=== PATIENT | male | born 1945 | race Caucasian/White ===

== ENCOUNTER 2019-12-15 09:32 | Emergency (ER) | payer OTHER ==
[~2019-12-15] VITALS: Ht 160 cm; Wt 60.1 kg
[~2019-12-15 09:32] MED LIST: ASPI81TA45 PO; ATOR-2 PO; HYDR-3245 PO; METO25TA35 PO; NICO-487 TD; NITR0.4T28 SL; QUET25TA7 PO; RISP0.5T24 PO; SENN-193 PO; TICA90TA PO
--- NOTE | 2019-12-15 09:53 | NUR ---
pt to ed for constipation. pt recently fell and injured right shoulder. pt believes constipation is related to pain medications. lbm at least 2 weeks ago. pt connected to monitors. vss. Dr. Almanza to bs for assessment. per edmd, due to recent FL, pt is not a candidate for sedation. orders received. plan for enema.
--- NOTE | 2019-12-15 10:00 | NUR ---
Report received from Quiana WEN, pt care transferred to Lynnette WEN and Aleshia WEN at this time.
--- NOTE | 2019-12-15 10:06 | NUR ---
Pt back from radiology via gurney, eyes closed, even and unlabored respirations, placed on monitor, call light within reach, NAD, WCTM.
--- NOTE | 2019-12-15 10:49 | NUR ---
HHH enema per MD order administered, pt sitting on bedside commode with RN standing by. Pt NAD, even and unlabored respirations, WCTM.
[2019-12-15] MEDS ORDERED: METHYLNALTREXONE 12 MG/0.6 ML SYR SQ ONE ×2 (11:30→11:34)
--- NOTE | 2019-12-15 11:39 | NUR ---
pt resting in gurney, NAD, call light within reach, denies additional needs, even and unlabored respirations, medicated per MAR. see MAR for details, WCTM.
[2019-12-15 11:43] LABS: ANION GAP 6 mmol/L (5-15); CALCIUM 8.5 mg/dL (8.5-10.1); CHLORIDE 105 mmol/L (98-107); CREATININE 1.07 mg/dL (0.7-1.3)
[2019-12-15 11:49] LABS: BASOPHILS # (AUTO) 0.02 x10^3/uL (0-0.1); BASOPHILS % (AUTO) 0 % (0-1); EOSINOPHILS # (AUTO) 0.39 x10^3/uL (0-0.4); EOSINOPHILS % (AUTO) 4 % (1-7); LYMPHOCYTES # (AUTO) 1.63 x10^3/uL (1-3.4); LYMPHOCYTES % (AUTO) 16 % (22-44); MD NO; MEAN CORPUSCULAR HEMOGLOBIN 33.2 pg (27.5-34.5); MEAN CORPUSCULAR HGB CONC 33.4 g/dL (33.2-36.2); MEAN CORPUSCULAR VOLUME 99.3 fL (81-97); MEAN PLATELET VOLUME 7.5 fL (7.4-10.4); MONOCYTES # (AUTO) 0.93 x10^3/uL (0.2-0.8); MONOCYTES % (AUTO) 9 % (2-9); NEUTROPHILS # (AUTO) 7.33 x10^3/uL (1.8-6.8); NEUTROPHILS % (AUTO) 71 % (42-75); PLATELET COUNT 261 x10^3/uL (130-400); RED BLOOD COUNT 3.43 x10^6/uL (4.38-5.82); RED CELL DISTRIBUTION WIDTH 13.7 % (9.4-14.8)
[2019-12-15] MEDS ORDERED: MAGNESIUM CITRATE 300ML ORAL SOL PO ONE (12:00)
--- NOTE | 2019-12-15 12:11 | NUR ---
pt resting in gurney, NAD, call light within reach, denies additional needs, even and unlabored respirations, medicated per MAR. see MAR for details, WCTM.
[2019-12-15] MEDS ORDERED: MAGNESIUM CITRATE 300ML ORAL SOL ONE (12:16)
--- NOTE | 2019-12-15 13:16 | NUR ---
Pt given fleets enema per Archie HELLER request, pt placed on bedpan and told to avoid straining, pt NAD, call light within reach, denies additional needs, on monitor, RN at bedside, NIKKY.
[2019-12-15 13:26] VITALS: BP 129/48
--- NOTE | 2019-12-15 14:13 | NUR ---
Pt ambulated independently w/ his personal walker to ED discharge desk, pt calling a cab for transport home.
== END 2019-12-15 14:15 | disposition home or self-care (01) ==
LOC: ED 10:15
DX: K56.41 Fecal impaction (principal); I10 Essential (primary) hypertension; E78.5 Hyperlipidemia, unspecified; I25.2 Old myocardial infarction; I25.10 Atherosclerotic heart disease of native coronary artery without angina pectoris; Z95.1 Presence of aortocoronary bypass graft
CPT/HCPCS: 36415; 74021; 80048; 82040; 85025; 96372; 99285

== ENCOUNTER 2019-12-17 05:44 | Emergency (ER) | payer OTHER ==
[~2019-12-17] VITALS: Ht 165.1 cm; Wt 58.0 kg
[2019-12-17] MEDS ORDERED: SODIUM CHLORIDE FLUSH 10ML SYR IVF ONE (06:00)
--- NOTE | 2019-12-17 06:25 | NUR ---
C/O SOB STATES "I FEEL IM NOT GETTING ANY AIR" 97% RA, PLACED 1L NC, PT NOW AT 98% 1L, PT REPORTS HE FEELS BETTER WITH THE OXYGEN.
[2019-12-17 06:40] LABS: BASOPHILS # (AUTO) 0.05 x10^3/uL (0-0.1); BASOPHILS % (AUTO) 1 % (0-1); EOSINOPHILS # (AUTO) 0.46 x10^3/uL (0-0.4); EOSINOPHILS % (AUTO) 5 % (1-7); LYMPHOCYTES # (AUTO) 1.52 x10^3/uL (1-3.4); LYMPHOCYTES % (AUTO) 16 % (22-44); MD NO; MEAN CORPUSCULAR HEMOGLOBIN 33.2 pg (27.5-34.5); MEAN CORPUSCULAR HGB CONC 33.5 g/dL (33.2-36.2); MEAN CORPUSCULAR VOLUME 99.1 fL (81-97); MEAN PLATELET VOLUME 7.4 fL (7.4-10.4); MONOCYTES # (AUTO) 0.92 x10^3/uL (0.2-0.8); MONOCYTES % (AUTO) 10 % (2-9); NEUTROPHILS # (AUTO) 6.49 x10^3/uL (1.8-6.8); NEUTROPHILS % (AUTO) 69 % (42-75); PLATELET COUNT 245 x10^3/uL (130-400); RED BLOOD COUNT 3.32 x10^6/uL (4.38-5.82); RED CELL DISTRIBUTION WIDTH 13.9 % (9.4-14.8)
[2019-12-17 06:47] VITALS: BP 94/56
--- NOTE | 2019-12-17 06:49 | NUR ---
PT CONTINUES TO REPORT HE FEELS HE CAN'T BREATHE, O2 SAT 100% ON 2L NC.
--- NOTE | 2019-12-17 06:51 | NUR ---
NO ACUTE DISTRESS NOTED, RESPIRATIONS ARE EVEN AND UNLABORED.
[2019-12-17 06:53] LABS: ALANINE AMINOTRANSFERASE 13 U/L (12-78); ALBUMIN 2.8 g/dL (3.4-5.0); ANION GAP 5 mmol/L (5-15); CALCIUM 8.7 mg/dL (8.5-10.1); CHLORIDE 104 mmol/L (98-107); CREATININE 1.01 mg/dL (0.7-1.3)
[2019-12-17 06:57] LABS: ALKALINE PHOSPHATASE 79 U/L (45-117); BILIRUBIN,TOTAL 1.3 mg/dL (0.2-1.0); TOTAL PROTEIN 6.6 g/dL (6.4-8.2); TROPONIN I < 0.015 ng/mL (0.000-0.045)
--- NOTE | 2019-12-17 07:11 | NUR ---
REPORT RECEIVED FROM BEHZAD DENNIS. ASSUMED CARE
== END 2019-12-17 08:15 | disposition home or self-care (01) ==
LOC: ED 05:58
DX: R06.00 Dyspnea, unspecified (principal); I10 Essential (primary) hypertension
CPT/HCPCS: 36415; 71045; 80053; 83880; 84484; 85025; 93005; 99283

== ENCOUNTER 2019-12-18 16:12 | Inpatient (IN) | payer OTHER ==
[~2019-12-18] VITALS: Ht 165.1 cm; Wt 59.6 kg
--- NOTE | 2019-12-18 16:32 | NUR ---
pt to ed for episodic sob x4 times today. per ems, episodes of sob corrolate to decrease in hr to low 40s. hr remains sinus at all times. pt connected to all monitors. vss. hr fluctuates from low 40s-mid 60s. no needs expressed at this time. Dr. Almanza to bs for assessment. orders received. xr complete. quality lab technician to bs at this time for draw. awaiting results.
[2019-12-18 16:56] LABS: BASOPHILS # (AUTO) 0.06 x10^3/uL (0-0.1); BASOPHILS % (AUTO) 1 % (0-1); EOSINOPHILS % (AUTO) 5 % (1-7); LYMPHOCYTES # (AUTO) 2.14 x10^3/uL (1-3.4); LYMPHOCYTES % (AUTO) 25 % (22-44); MD NO; MEAN CORPUSCULAR HEMOGLOBIN 32.7 pg (27.5-34.5); MEAN CORPUSCULAR HGB CONC 33.3 g/dL (33.2-36.2); MEAN CORPUSCULAR VOLUME 98.2 fL (81-97); MEAN PLATELET VOLUME 7.5 fL (7.4-10.4); MONOCYTES # (AUTO) 0.69 x10^3/uL (0.2-0.8); MONOCYTES % (AUTO) 8 % (2-9); NEUTROPHILS # (AUTO) 5.25 x10^3/uL (1.8-6.8); NEUTROPHILS % (AUTO) 62 % (42-75); PLATELET COUNT 280 x10^3/uL (130-400); RED BLOOD COUNT 3.41 x10^6/uL (4.38-5.82); RED CELL DISTRIBUTION WIDTH 13.7 % (9.4-14.8)
[2019-12-18 17:00] LABS: ALANINE AMINOTRANSFERASE 12 U/L (12-78); ALBUMIN 2.9 g/dL (3.4-5.0); ANION GAP 5 mmol/L (5-15); CALCIUM 8.8 mg/dL (8.5-10.1); CHLORIDE 105 mmol/L (98-107)
[2019-12-18 17:04] LABS: ALKALINE PHOSPHATASE 80 U/L (45-117); BILIRUBIN,TOTAL 0.6 mg/dL (0.2-1.0); TOTAL PROTEIN 6.7 g/dL (6.4-8.2); TROPONIN I < 0.015 ng/mL (0.000-0.045)
--- NOTE | 2019-12-18 17:38 | NUR ---
assist rn: PT TO IMAGING AT THIS TIME.
[2019-12-18] MEDS ORDERED: OMNIPAQUE 350 MG/ML, 100ML BOTTLE ONE (18:01)
--- NOTE | 2019-12-18 18:39 | NUR ---
CM PERSAUD, ROOMMATE, OKAY TO UPDATE, .
--- NOTE | 2019-12-18 18:42 | NUR ---
pt resting in room. vss. second ekg obtained d/t bradycardia. edmd aware. plan to admit. no needs expressed. call light within reach.
--- NOTE | 2019-12-18 18:55 | NUR ---
report to BEHZAD Sal.
--- NOTE | 2019-12-18 19:09 | NUR ---
TP RN: PT TO BE ADMITTED, HAS NON-CONTRACTED [employer] INSURANCE. PT REFUSED BY MECHANICAL TECHNICAL SERVICE SPECIALIST, CONCHIS AT [facility].
--- NOTE | 2019-12-18 19:14 | NUR ---
Pt alert and resting on gurney. Pt provided with urinal. Call light within reach.
[2019-12-18] MEDS ORDERED: ONDANSETRON 2MG/ML, 2ML IVPush PRN (19:30)
[2019-12-18] MEDS ORDERED: ACETAMINOPHEN 325 MG TABLET PO PRN (19:30)
--- NOTE | 2019-12-18 19:45 | NUR ---
Pt helped to reposition on gurney. Call light within reach.
--- NOTE | 2019-12-18 19:46 | NUR ---
Report given to BEHZAD Salazar
[2019-12-18 20:30] VITALS: BP 109/53
[2019-12-18] MEDS ORDERED: TICAGRELOR 90 MG TABLET PO SCH (21:00)
[2019-12-18] MEDS: ATORVASTATIN 80 MG TABLET PO SCH (22:29)
[2019-12-18] MEDS: QUETIAPINE 25MG TABLET PO SCH (22:30)
[2019-12-18] MEDS: RISPERIDONE 0.5 MG TABLET PO SCH (22:30)
[2019-12-19 03:20] VITALS: BP 105/47
[2019-12-19] MEDS ORDERED: LORazepam 2 MG/ML, 1ML IVPush PRN (04:00)
[2019-12-19] MEDS: HYDROcodone/APAP 5/325 TABLET PO PRN ×3 (04:15→20:44)
[2019-12-19 04:45] LABS: BASOPHILS # (AUTO) 0.12 x10^3/uL (0-0.1); BASOPHILS % (AUTO) 1 % (0-1); EOSINOPHILS % (AUTO) 7 % (1-7); LYMPHOCYTES # (AUTO) 1.93 x10^3/uL (1-3.4); LYMPHOCYTES % (AUTO) 23 % (22-44); MD NO; MEAN CORPUSCULAR HEMOGLOBIN 33.1 pg (27.5-34.5); MEAN CORPUSCULAR HGB CONC 33.5 g/dL (33.2-36.2); MEAN CORPUSCULAR VOLUME 98.9 fL (81-97); MEAN PLATELET VOLUME 7.1 fL (7.4-10.4); MONOCYTES # (AUTO) 0.97 x10^3/uL (0.2-0.8); MONOCYTES % (AUTO) 11 % (2-9); NEUTROPHILS # (AUTO) 4.95 x10^3/uL (1.8-6.8); NEUTROPHILS % (AUTO) 58 % (42-75); PLATELET COUNT 271 x10^3/uL (130-400); RED BLOOD COUNT 3.32 x10^6/uL (4.38-5.82); RED CELL DISTRIBUTION WIDTH 13.6 % (9.4-14.8)
[2019-12-19 04:53] LABS: ANION GAP 6 mmol/L (5-15); CALCIUM 8.7 mg/dL (8.5-10.1); CHLORIDE 108 mmol/L (98-107)
[2019-12-19 05:05] LABS: CREATININE 0.82 mg/dL (0.7-1.3)
[2019-12-19] MEDS ORDERED: METOPROLOL TARTRATE 25 MG TAB PO SCH (06:00)
[2019-12-19] MEDS: ASPIRIN 81 MG TABLET EC PO SCH (06:27)
[2019-12-19 07:20] VITALS: BP 152/66
[2019-12-19] MEDS: QUETIAPINE 25MG TABLET PO SCH ×2 (09:03→20:48)
[2019-12-19] MEDS: CLOPIDOGREL 75 MG TABLET PO SCH (09:03)
[2019-12-19 13:30] VITALS: BP 143/66
[2019-12-19 20:06] VITALS: BP 156/52
[2019-12-19] MEDS: RISPERIDONE 0.5 MG TABLET PO SCH (20:45)
[2019-12-19] MEDS: ATORVASTATIN 80 MG TABLET PO SCH (20:45)
[2019-12-20 01:59] VITALS: BP 147/63
[2019-12-20] MEDS: HYDROcodone/APAP 5/325 TABLET PO PRN (02:06)
[2019-12-20] MEDS: ASPIRIN 81 MG TABLET EC PO SCH (06:16)
[2019-12-20 07:49] VITALS: BP 138/69
[2019-12-20] MEDS: QUETIAPINE 25MG TABLET PO SCH (08:56)
[2019-12-20] MEDS: CLOPIDOGREL 75 MG TABLET PO SCH (08:56)
[2019-12-20] MEDS ORDERED: CLOP75TA PO (09:40)
== END 2019-12-20 13:01 | disposition home or self-care (01) | DRG 204 ==
LOC: ED 16:49 → EDIP 18:54 → 5SO 20:02
PROVIDERS: ADMIT Internal Medicine; ATTEND Internal Medicine
DX: R06.02 Shortness of breath (principal); R00.1 Bradycardia, unspecified; D53.9 Nutritional anemia, unspecified; E78.5 Hyperlipidemia, unspecified; F17.210 Nicotine dependence, cigarettes, uncomplicated; F32.9 Major depressive disorder, single episode, unspecified; I71.2 Thoracic aortic aneurysm, without rupture; T45.525A Adverse effect of antithrombotic drugs, initial encounter; F41.9 Anxiety disorder, unspecified; I10 Essential (primary) hypertension; I25.10 Atherosclerotic heart disease of native coronary artery without angina pectoris; I25.2 Old myocardial infarction; Z79.82 Long term (current) use of aspirin; Z95.1 Presence of aortocoronary bypass graft; Z95.5 Presence of coronary angioplasty implant and graft
CPT/HCPCS: 36415; 71045; 71275; 80048; 80053; 83880; 84443; 84484; 85025; 93005; 99285; G0378; Q9967; J2060

== ENCOUNTER 2019-12-20 15:06 | Observation (INO) | payer OTHER ==
[~2019-12-20] VITALS: Ht 165.1 cm; Wt 59.3 kg
[~2019-12-20 15:06] MED LIST changes: +CLOP75TA PO
[2019-12-20] MEDS ORDERED: SODIUM CHLORIDE FLUSH 10ML SYR IVF ONE (15:30)
--- NOTE | 2019-12-20 15:30 | NUR ---
to Radiology for xrays/Head CT
--- NOTE | 2019-12-20 15:35 | NUR ---
BIB BY [facility] FROM HOME AFTER GLF D/T SUDDEN ROOM SPINNING DIZZINESS. -LOC, DID NOT HIT HEAD, NO BLOOD THINNERS NO CHEST PAIN, SOB RECENTLY STARTED ON UNKNOWN PAIN MEDICINE FOR RECENTLY FRACTURED RIGHT HUMERUS MAISHA RECENTLY HOSPITALIZED FOR MS FSBS 132, VSS (BBB ON 12 LEAD ECG) SMALL SKIN TEAR TO RIGHT HAND NOTED
[2019-12-20 15:46] LABS: BASOPHILS # (AUTO) 0.12 x10^3/uL (0-0.1); BASOPHILS % (AUTO) 1 % (0-1); EOSINOPHILS # (AUTO) 0.13 x10^3/uL (0-0.4); EOSINOPHILS % (AUTO) 2 % (1-7); LYMPHOCYTES # (AUTO) 1.28 x10^3/uL (1-3.4); LYMPHOCYTES % (AUTO) 15 % (22-44); MD NO; MEAN CORPUSCULAR HEMOGLOBIN 32.3 pg (27.5-34.5); MEAN CORPUSCULAR HGB CONC 32.4 g/dL (33.2-36.2); MEAN CORPUSCULAR VOLUME 99.7 fL (81-97); MEAN PLATELET VOLUME 6.9 fL (7.4-10.4); MONOCYTES # (AUTO) 0.53 x10^3/uL (0.2-0.8); MONOCYTES % (AUTO) 6 % (2-9); NEUTROPHILS # (AUTO) 6.52 x10^3/uL (1.8-6.8); NEUTROPHILS % (AUTO) 76 % (42-75); PLATELET COUNT 320 x10^3/uL (130-400); RED BLOOD COUNT 3.68 x10^6/uL (4.38-5.82); RED CELL DISTRIBUTION WIDTH 13.8 % (9.4-14.8)
[2019-12-20 15:54] LABS: ANION GAP 5 mmol/L (5-15); CHLORIDE 105 mmol/L (98-107)
[2019-12-20 15:57] LABS: TROPONIN I < 0.015 ng/mL (0.000-0.045)
--- NOTE | 2019-12-20 16:40 | NUR ---
WITH REASSESSMENT PATIENT RESTING COMFORTABLY (FAST ASLEEP) VSS ON LANDSCAPING AND GROUNDSKEEPING LABORER LEFT HAND SKIN LAC-IRRIGATED/DRESSED WITH BULKY DRESSING
[2019-12-20] MEDS ORDERED: SODIUM CHLORIDE FLUSH 10ML SYR IVF PRN (17:30)
[2019-12-20] MEDS ORDERED: TRAZODONE 50MG TABLET PO PRN (18:00)
[2019-12-20] MEDS ORDERED: LABETALOL 5MG/ML, 20ML IVPush PRN (18:00)
[2019-12-20] MEDS ORDERED: POLYETHYLENE GLYCOL 17 GM PACKET PO PRN (18:00)
[2019-12-20] MEDS ORDERED: ONDANSETRON ODT 4 MG PO PRN (18:00)
[2019-12-20] MEDS ORDERED: ACETAMINOPHEN 325 MG TABLET PO PRN (18:00)
[2019-12-20] MEDS ORDERED: DOCUSATE 100 MG CAPSULE PO PRN (18:00)
[2019-12-20] MEDS ORDERED: hydrALAzine 20 MG/ML, 1ML IVPush PRN (18:00)
[2019-12-20 18:31] VITALS: BP 138/70
[2019-12-20] MEDS ORDERED: ENOXAPARIN 40 MG/0.4 ML SQ SCH (19:00)
[2019-12-20 19:18] LABS: PREALBUMIN 18.1 mg/dL (20.0-40.0)
[2019-12-20] MEDS: HYDROcodone/APAP 10/325 MG TABLET PO PRN (19:32)
[2019-12-20] MEDS: RISPERIDONE 0.5 MG TABLET PO SCH (20:05)
[2019-12-20] MEDS: ATORVASTATIN 80 MG TABLET PO SCH (20:05)
[2019-12-20] MEDS: QUETIAPINE 25MG TABLET PO SCH (20:06)
[2019-12-20 20:18] LABS: AMPHETAMINE SCREEN, URINE Negative (Negative); BARBITURATE SCREEN, URINE Negative (Negative); BENZODIAZEPINE SCREEN, URINE Negative (Negative); CANNABINOID SCREEN, URINE Positive (Negative); COCAINE SCREEN, URINE Negative (Negative); METHADONE SCREEN, URINE Negative (Negative); OPIATE SCREEN, URINE Positive (Negative)
[2019-12-20 21:09] LABS: MICROSCOPIC NOT IND
[2019-12-20 21:10] LABS: CULTURE INDICATED? NO
[2019-12-21 01:18] VITALS: BP 136/92
[2019-12-21] MEDS: HYDROcodone/APAP 10/325 MG TABLET PO PRN ×3 (01:54→17:15)
[2019-12-21 04:57] LABS: BASOPHILS # (AUTO) 0.05 x10^3/uL (0-0.1); BASOPHILS % (AUTO) 1 % (0-1); EOSINOPHILS # (AUTO) 0.47 x10^3/uL (0-0.4); EOSINOPHILS % (AUTO) 5 % (1-7); LYMPHOCYTES # (AUTO) 2.28 x10^3/uL (1-3.4); LYMPHOCYTES % (AUTO) 25 % (22-44); MD NO; MEAN CORPUSCULAR HEMOGLOBIN 33.2 pg (27.5-34.5); MEAN CORPUSCULAR HGB CONC 33.4 g/dL (33.2-36.2); MEAN CORPUSCULAR VOLUME 99.3 fL (81-97); MEAN PLATELET VOLUME 7.3 fL (7.4-10.4); MONOCYTES # (AUTO) 0.98 x10^3/uL (0.2-0.8); MONOCYTES % (AUTO) 11 % (2-9); NEUTROPHILS # (AUTO) 5.44 x10^3/uL (1.8-6.8); NEUTROPHILS % (AUTO) 59 % (42-75); PLATELET COUNT 309 x10^3/uL (130-400); RED BLOOD COUNT 3.66 x10^6/uL (4.38-5.82); RED CELL DISTRIBUTION WIDTH 13.9 % (9.4-14.8)
[2019-12-21 05:05] LABS: ANION GAP 7 mmol/L (5-15); CALCIUM 8.9 mg/dL (8.5-10.1); CHLORIDE 108 mmol/L (98-107)
[2019-12-21 05:10] LABS: ALANINE AMINOTRANSFERASE 14 U/L (12-78); ALKALINE PHOSPHATASE 104 U/L (45-117); CREATININE 0.95 mg/dL (0.7-1.3); TOTAL PROTEIN 6.9 g/dL (6.4-8.2)
[2019-12-21] MEDS: ASPIRIN 81 MG TABLET EC PO SCH (05:14)
[2019-12-21 06:40] VITALS: BP 151/61
[2019-12-21] MEDS: CLOPIDOGREL 75 MG TABLET PO SCH (07:51)
[2019-12-21] MEDS: QUETIAPINE 25MG TABLET PO SCH ×2 (07:51→20:06)
[2019-12-21 12:56] VITALS: BP 165/73
[2019-12-21 18:39] VITALS: BP 148/61
[2019-12-21] MEDS: ATORVASTATIN 80 MG TABLET PO SCH (20:05)
[2019-12-21] MEDS: RISPERIDONE 0.5 MG TABLET PO SCH (20:06)
[2019-12-22 00:55] VITALS: BP 152/74
[2019-12-22] MEDS: ASPIRIN 81 MG TABLET EC PO SCH (05:16)
[2019-12-22 07:33] VITALS: BP 149/65
[2019-12-22] MEDS: QUETIAPINE 25MG TABLET PO SCH (07:42)
[2019-12-22] MEDS: CLOPIDOGREL 75 MG TABLET PO SCH (07:42)
[2019-12-22] MEDS: HYDROcodone/APAP 10/325 MG TABLET PO PRN (12:35)
[2019-12-22 14:12] VITALS: BP 145/65
== END 2019-12-22 17:26 ==
LOC: ED 15:25 → INTOOBSV 17:08 → EDIP 17:08 → 4WST 18:14
PROVIDERS: ADMIT Internal Medicine; ATTEND Internal Medicine
DX: S42.201A Unspecified fracture of upper end of right humerus, initial encounter for closed fracture (principal); G92 Toxic encephalopathy; E44.1 Mild protein-calorie malnutrition; R55 Syncope and collapse; F32.9 Major depressive disorder, single episode, unspecified; F17.200 Nicotine dependence, unspecified, uncomplicated; F12.90 Cannabis use, unspecified, uncomplicated; F41.9 Anxiety disorder, unspecified; I10 Essential (primary) hypertension; R29.6 Repeated falls; I25.10 Atherosclerotic heart disease of native coronary artery without angina pectoris; I25.2 Old myocardial infarction; Z79.82 Long term (current) use of aspirin; Z79.899 Other long term (current) drug therapy; Z91.81 History of falling; Z95.1 Presence of aortocoronary bypass graft; Y92.098 Other place in other non-institutional residence as the place of occurrence of the external cause; W18.39XA Other fall on same level, initial encounter; Y93.89 Activity, other specified
CPT/HCPCS: 36415; 70450; 70551; 71045; 73060; 80048; 80053; 80307; 81003; 82040; 83735; 83880; 84100; 84134; 84484; 85025; 86592; 87806; 93005; 97116; 97162; 97166; 97530; 99285; G0378; G0475

== ENCOUNTER 2021-01-01 11:34 | Emergency (ER) | payer OTHER ==
[~2021-01-01] VITALS: Ht 162.6 cm; Wt 55.0 kg
[~2021-01-01 11:34] MED LIST changes: +ASCO500T9 PO; +CHOL500045 PO; -HYDR-3245 PO; +HYDR1TAB53 PO; -NICO-487 TD; +NICO-587 TD
--- NOTE | 2021-01-01 11:43 | NUR ---
PATIENT BIB EMS WITH CHIEF C/O BALANCE ISSUES. PER EMS PATIENT STATES HE "FEELS OFF." PATIENT USES WALKER AT HOME, ROOMATE CALLED BECAUSE HE NOTICED PATIENT'S BALANCE WAS OFF. PATIENT DENIES DIZZINESS, NO CHEST PAIN. VSS EN ROUTE PER EMS. NO INTERVENTIONS EN ROUTE. PATIENT DENIES ABBOTT, NADN, CONNECTED TO MONITORS, SIDE RAILS UP X2, CALL LIGHT WITHIN REACH.
[2021-01-01] MEDS ORDERED: SODIUM CHLORIDE 0.9% 1,000ML IVBOLUS ONE (12:00)
[2021-01-01] MEDS ORDERED: SODIUM CHLORIDE FLUSH 10ML SYR IVF ONE (12:00)
--- NOTE | 2021-01-01 12:21 | NUR ---
PATIENT EDUCATED ABOUT NEED FOR URINE SAMPLE, URINAL AT BEDSIDE. 20 GAUGE IV STARTED LEFT FOREARM, NS BOLUS HUNG, NADN, VSS, SIDE RAILS UP X2, CALL LIGHT WITHIN REACH, NO FURTHER NEEDS AT THIS TIME.
[2021-01-01 12:23] LABS: BASOPHILS % (AUTO) 1 % (0-1); EOSINOPHILS % (AUTO) 2 % (1-7); LYMPHOCYTES % (AUTO) 10 % (22-44); MEAN CORPUSCULAR HEMOGLOBIN 28.1 pg (27.5-34.5); MEAN CORPUSCULAR HGB CONC 32.7 g/dL (33.2-36.2); MEAN PLATELET VOLUME 6.7 fL (7.4-10.4); MONOCYTES % (AUTO) 11 % (2-9); NEUTROPHILS % (AUTO) 76 % (42-75); PLATELET COUNT 533 x10^3/uL (130-400); RED BLOOD COUNT 3.12 x10^6/uL (4.38-5.82); RED CELL DISTRIBUTION WIDTH 16.3 % (9.4-14.8)
[2021-01-01 12:34] LABS: ALANINE AMINOTRANSFERASE 10 U/L (12-78); ALBUMIN 1.9 g/dL (3.4-5.0); ANION GAP 5 mmol/L (5-15); CALCIUM 8.5 mg/dL (8.5-10.1); CHLORIDE 103 mmol/L (98-107); CREATININE 0.82 mg/dL (0.7-1.3)
[2021-01-01 12:39] LABS: ALKALINE PHOSPHATASE 114 U/L (45-117); BILIRUBIN,TOTAL 0.3 mg/dL (0.2-1.0); TOTAL PROTEIN 7.1 g/dL (6.4-8.2); TROPONIN I < 0.015 ng/mL (0.000-0.045)
[2021-01-01 12:42] LABS: CREATINE KINASE, TOTAL < 7 U/L (39-308)
[2021-01-01 13:05] LABS: MD SCAN
[2021-01-01 13:06] LABS: MICROSCOPIC NOT IND
--- NOTE | 2021-01-01 13:12 | NUR ---
URINE COLLECTED AND SENT TO LAB.
--- NOTE | 2021-01-01 13:34 | NUR ---
PATIENT REQUESTING BED ADJUSTMENT, BED ADJUSTED, NADN, VSS, CALL LIGHT WITHIN REACH, NO FURTHER NEEDS AT THIS TIME. PATIENT UP FOR RECHECK.
[2021-01-01] MEDS ORDERED: POTASSIUM CHLORIDE 20 MEQ PACKET PO ONE (14:00)
[2021-01-01] MEDS ORDERED: POTASSIUM CHLORIDE 20 MEQ PACKET ONE (14:05)
--- NOTE | 2021-01-01 14:13 | NUR ---
PATIENT AMBULATED DOWN [place] WITH STEADY GAIT, LAVERN, PATIENT MEDICATED PER [employer]. Addendum: 01/01/21 at 1421 by JEANINE ELSI NOTIFIED THAT PATIENT IS ABLE TO AMBULATE DOWN [place].
[2021-01-01 15:24] VITALS: BP 136/49
--- NOTE | 2021-01-01 15:25 | NUR ---
IV removed with tip intact. Patient given discharge instructions and prescription and they have confirmed that they understand the instructions. Patient stable and ambulatory with steady gait from ED.
== END 2021-01-01 15:24 | disposition home or self-care (01) ==
LOC: ED 14:21
DX: E87.6 Hypokalemia (principal); R07.9 Chest pain, unspecified; I45.10 Unspecified right bundle-branch block; I10 Essential (primary) hypertension; I25.2 Old myocardial infarction; I25.10 Atherosclerotic heart disease of native coronary artery without angina pectoris
CPT/HCPCS: 36415; 71045; 80053; 81003; 82550; 83605; 83735; 84443; 84484; 85025; 93005; 96360; 99284; J7030; 99283

== ENCOUNTER 2021-02-16 17:40 | Inpatient (IN) | payer OTHER ==
[~2021-02-16] VITALS: Ht 165.1 cm; Wt 55.0 kg
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
--- NOTE | 2021-02-16 17:52 | NUR ---
PROVIDER AT BEDSIDE TO DO EVALUATION ON PT. AWAITING NEW ORDERS.
[2021-02-16] MEDS ORDERED: SODIUM CHLORIDE FLUSH 10ML SYR IVF ONE (18:00)
[2021-02-16] MEDS ORDERED: ASPIRIN 81 MG TABLET CHEW PO ONE (18:00)
[2021-02-16 18:25] LABS: BASOPHILS % (AUTO) 1 % (0-1); EOSINOPHILS % (AUTO) 2 % (1-7); LYMPHOCYTES % (AUTO) 11 % (22-44); MEAN CORPUSCULAR HEMOGLOBIN 25.7 pg (27.5-34.5); MEAN CORPUSCULAR HGB CONC 32.6 g/dL (33.2-36.2); MEAN PLATELET VOLUME 6.4 fL (7.4-10.4); MONOCYTES % (AUTO) 11 % (2-9); NEUTROPHILS % (AUTO) 75 % (42-75); PLATELET COUNT 658 x10^3/uL (130-400); RED CELL DISTRIBUTION WIDTH 17.8 % (9.4-14.8)
[2021-02-16 18:34] LABS: ALBUMIN 1.4 g/dL (3.4-5.0); ANION GAP 4 mmol/L (5-15); CALCIUM 8.3 mg/dL (8.5-10.1); CHLORIDE 103 mmol/L (98-107)
--- NOTE | 2021-02-16 18:45 | NUR ---
PROVIDER AT PT BEDSIDE TO DO EVALUATION AFTER CRITICAL VALUES CAME BACK LOW. AWAITING ORDERS
[2021-02-16 18:46] LABS: ALANINE AMINOTRANSFERASE 7 U/L (12-78); ALKALINE PHOSPHATASE 105 U/L (45-117); BILIRUBIN,TOTAL 0.3 mg/dL (0.2-1.0); CREATININE 0.66 mg/dL (0.7-1.3); TOTAL PROTEIN 6.7 g/dL (6.4-8.2); TROPONIN I < 0.015 ng/mL (0.000-0.045)
[2021-02-16] MEDS ORDERED: PANTOPRAZOLE 80 MG in SODIUM CHLORIDE 0.9% 100 ML IV SCH ×2 (19:00→21:00)
[2021-02-16] MEDS ORDERED: PANTOPRAZOLE 80 MG in SODIUM CHLORIDE 0.9% 50 ML IVPB ONE (19:00)
--- NOTE | 2021-02-16 19:05 | NUR ---
AT BEDSIDE WITH HEMOCULT OBTAINED AND POSITIVE. DISCUSSING BLOOD TRANSFUSION AND ADMISSION TO HOSPITAL. REPORT TO LAVERNE WEN
[2021-02-16 19:19] LABS: INTERNATIONAL NORMALIZED RATIO 1.25 (0.93-1.1); PROTHROMBIN TIME 13.3 Seconds (9.6-11.5)
--- NOTE | 2021-02-16 19:19 | NUR ---
THROUGHPUT: PT TRANSFER DECLINED BY [facility] (SKIP) FOR [place] [facility]; [facility] FORM FAXED & PLACED IN FOLDER WITH FAX CONFIRMATION; EMAIL ALSO SENT TO ADMITTING DEPT.
--- NOTE | 2021-02-16 19:35 | NUR ---
PT. RESTING ON GURNEY WITH EYES CLOSED. EVEN, NON-LABORED RESPIRATIONS VISIBLE. PT. APPEARS MORE COMFORTABLE. ALL SAFETY MEASURES MAINTAINED.
--- NOTE | 2021-02-16 19:49 | NUR ---
STILL AWAITING MED FROM PHARMACY.
[2021-02-16] MEDS ORDERED: SODIUM CHLORIDE 0.9% 1,000 ML IV ONE (20:00)
[2021-02-16] MEDS ORDERED: SODIUM CHLORIDE FLUSH 10ML SYR IVF PRN (20:00)
[2021-02-16 20:09] VITALS: BP 128/59
[2021-02-16 20:27] VITALS: BP 146/55
--- NOTE | 2021-02-16 20:28 | NUR ---
BLOOD INFUSING; PT. FREE FROM S/S OF REACTIONL. REPORT WAS GIVEN TO BEHZAD WILLETT. FLOOR READY FOR PT. TRANSPORT.
[2021-02-16 20:39] VITALS: BP 122/54
--- NOTE | 2021-02-16 20:40 | NUR ---
[facility] TO BS TO EVAL PT. FOR ADMISSION.
--- NOTE | 2021-02-16 21:01 | NUR ---
PT. BEING TRANSPORTED TO FLOOR AT THIS TIME. BLOOD CONTINUES TO INFUSE. PT. REMAINS FREE FROM S/S OF REACTION.
[2021-02-16 21:18] VITALS: BP 126/58
[2021-02-16] MEDS ORDERED: BISACODYL 10 MG SUPP PR PRN (22:00)
[2021-02-16] MEDS ORDERED: LIDODERM 5% PATCH TD PRN (22:00)
[2021-02-16] MEDS ORDERED: POTASSIUM CHLORIDE 20 MEQ in SODIUM CHLORIDE 0.9% 250 ML IV ONE (22:30)
[2021-02-16] MEDS: MOVIPREP POWDER 1 PREP KIT PO SCH (23:23)
[2021-02-16 23:33] VITALS: BP 122/49
[2021-02-17] VITALS (8 sets, daily range): BP systolic 103–133; BP diastolic 48–63
[2021-02-17] MEDS ORDERED: NICOTINE 21 MG/24 HR PATCH.TD24 TD ONE
[2021-02-17 00:40] LABS: TROPONIN I < 0.015 ng/mL (0.000-0.045)
[2021-02-17 01:16] LABS: MICROSCOPIC INDICATED
[2021-02-17] MEDS: MOVIPREP POWDER 1 PREP KIT PO SCH (03:43)
[2021-02-17 07:53] LABS: BASOPHILS % (AUTO) 1 % (0-1); EOSINOPHILS % (AUTO) 2 % (1-7); LYMPHOCYTES % (AUTO) 8 % (22-44); MEAN CORPUSCULAR HEMOGLOBIN 26.2 pg (27.5-34.5); MEAN CORPUSCULAR HGB CONC 32.3 g/dL (33.2-36.2); MEAN PLATELET VOLUME 6.5 fL (7.4-10.4); MONOCYTES % (AUTO) 11 % (2-9); NEUTROPHILS % (AUTO) 79 % (42-75); PLATELET COUNT 680 x10^3/uL (130-400); RED BLOOD COUNT 3.07 x10^6/uL (4.38-5.82); RED CELL DISTRIBUTION WIDTH 17.4 % (9.4-14.8)
[2021-02-17 08:06] LABS: ANION GAP 5 mmol/L (5-15); CALCIUM 8.2 mg/dL (8.5-10.1); CHLORIDE 109 mmol/L (98-107); CHOLESTEROL, TOTAL 120 mg/dL (140-239); CREATININE 0.61 mg/dL (0.7-1.3)
[2021-02-17 08:16] LABS: CHOL/HDL RATIO 4.8; HDL CHOL % 21 % (26-37); HDL CHOLESTEROL (DIRECT) 25 mg/dL (40-60); LDL CHOLESTEROL,CALCULATED 81 mg/dL (54-169); LDL/HDL RATIO 3.2 (0.5-3.0); TRIGLYCERIDES 70 mg/dL (50-200); TROPONIN I < 0.015 ng/mL (0.000-0.045); VLDL CHOLESTEROL 14 mg/dL (0-25)
[2021-02-17] MEDS ORDERED: CHLORHEXIDINE 15 ML UDC PO ONE (08:30)
[2021-02-17] MEDS ORDERED: PROPOFOL 50 ML ONE (09:00)
[2021-02-17] MEDS ORDERED: OMNIPAQUE 350 MG/ML, 100ML BOTTLE ONE (15:10)
[2021-02-17] MEDS ORDERED: VANCOMYCIN PER PHARMACY MC PRN (17:30)
[2021-02-17] MEDS ORDERED: GOLYTELY 4,000ML ORAL.SOL PO ONE (18:00)
[2021-02-17] MEDS ORDERED: PHARMACOKINETIC MONITORING MC PRN (18:00)
[2021-02-17 18:24] LABS: HCT (SEDRATE) 23.9 % (39.2-51.8)
[2021-02-17] MEDS: CEFTRIAXONE 2 GM in DEXTROSE 5% 50 ML IVPB SCH (18:32)
[2021-02-17] MEDS ORDERED: VANCOMYCIN 1,400 MG in SODIUM CHLORIDE 0.9% 250 ML IV ONE (20:00)
[2021-02-17] MEDS: POTASSIUM CHLORIDE 20 MEQ in LACTATED RINGERS 1,000 ML IV SCH (20:25)
[2021-02-18] VITALS (7 sets, daily range): BP systolic 116–144; BP diastolic 49–62
--- NOTE | 2021-02-18 02:59 | NUR ---
CLAUDETTE FLYNN - Fall Risk Medications present and NOT receiving anticoagulants.
[2021-02-18 05:17] LABS: MEAN CORPUSCULAR HEMOGLOBIN 25.9 pg (27.5-34.5); MEAN CORPUSCULAR HGB CONC 31.7 g/dL (33.2-36.2); MEAN PLATELET VOLUME 6.7 fL (7.4-10.4); PLATELET COUNT 746 x10^3/uL (130-400); RED BLOOD COUNT 3.09 x10^6/uL (4.38-5.82); RED CELL DISTRIBUTION WIDTH 17.7 % (9.4-14.8)
[2021-02-18 05:21] LABS: ALBUMIN 1.4 g/dL (3.4-5.0); ANION GAP 8 mmol/L (5-15); CALCIUM 8.5 mg/dL (8.5-10.1); CHLORIDE 109 mmol/L (98-107)
[2021-02-18 05:25] LABS: ALKALINE PHOSPHATASE 100 U/L (45-117); BILIRUBIN,TOTAL 0.4 mg/dL (0.2-1.0); CREATININE 0.52 mg/dL (0.7-1.3); TOTAL PROTEIN 6.4 g/dL (6.4-8.2)
[2021-02-18 05:30] LABS: ALANINE AMINOTRANSFERASE < 6 U/L (12-78)
[2021-02-18 05:52] LABS: BAND#(MANUAL) 0.64 x10^3/uL; BANDS%(MANUAL) 3 % (0-7); EOS#(MANUAL) 0.43 x10^3/uL (0.0-0.4); EOS% (MANUAL) 2 % (1-7); LYMPH#(MANUAL) 1.92 x10^3/uL (1-3.4); LYMPHS% (MANUAL) 9 % (22-44); MONOS% (MANUAL) 8 % (2-9); SEG#(MANUAL) 16.61 x10^3/uL (1.8-6.8); SEGS% (MANUAL) 78 % (42-75)
[2021-02-18 05:53] LABS: ANISOCYTOSIS 1+; HYPOCHROMIA 1+
[2021-02-18 05:54] LABS: <PLATELET ESTIMATE> INCREASED; SMALL PLATELETS 1+
[2021-02-18] MEDS: POTASSIUM CHLORIDE 20 MEQ in LACTATED RINGERS 1,000 ML IV SCH (06:40)
[2021-02-18] MEDS ORDERED: VANCOMYCIN 1,000 MG in SODIUM CHLORIDE 0.9% 100 ML IV SCH (08:00)
[2021-02-18] MEDS ORDERED: FLUMAZENIL 0.1 MG/1 ML, 5ML ONE (08:35)
[2021-02-18] MEDS ORDERED: MIDAZOLAM 1 MG/ML, 5ML ONE (08:35)
[2021-02-18] MEDS ORDERED: NALOXONE 1 MG/ML, 2ML ONE (08:35)
[2021-02-18] MEDS ORDERED: FENTANYL PF 100 MCG/2ML ONE (08:35)
[2021-02-18] MEDS ORDERED: LIDOCAINE-MPF 1%, 5ML ONE (08:42)
[2021-02-18] MEDS ORDERED: CHLORHEXIDINE 15 ML UDC ONE (09:35)
[2021-02-18] MEDS ORDERED: PROPOFOL 50 ML ONE (10:23)
[2021-02-18] MEDS ORDERED: ACETAMINOPHEN 325 MG TABLET PO PRN (10:30)
[2021-02-18] MEDS ORDERED: hydrALAzine 20 MG/ML, 1ML IV PRN (10:30)
[2021-02-18] MEDS ORDERED: DIAZEPAM 5 MG/ML, 2ML IVPush PRN (10:30)
[2021-02-18] MEDS ORDERED: LABETALOL 5MG/ML, 20ML IV PRN (10:30)
[2021-02-18] MEDS ORDERED: OXYcodone 5 MG/5 ML ORAL.SOL UDC PO PRN (10:30)
[2021-02-18] MEDS ORDERED: FENTANYL PF 100 MCG/2ML IV PRN (10:30)
[2021-02-18] MEDS ORDERED: ONDANSETRON 2MG/ML, 2ML IVPush PRN (10:30)
[2021-02-18] MEDS: CEFTRIAXONE 2 GM in DEXTROSE 5% 50 ML IVPB SCH (17:46)
[2021-02-18] MEDS: VANCOMYCIN 1,000 MG in SODIUM CHLORIDE 0.9% 100 ML IV SCH (23:56)
[2021-02-19] MEDS: POTASSIUM CHLORIDE 20 MEQ in LACTATED RINGERS 1,000 ML IV SCH (01:23)
[2021-02-19 01:49] VITALS: BP 114/60
[2021-02-19 06:14] VITALS: BP 133/56
[2021-02-19 10:04] LABS: MEAN CORPUSCULAR HEMOGLOBIN 25.4 pg (27.5-34.5); MEAN CORPUSCULAR HGB CONC 31.4 g/dL (33.2-36.2); MEAN PLATELET VOLUME 6.4 fL (7.4-10.4); PLATELET COUNT 768 x10^3/uL (130-400); RED BLOOD COUNT 3.57 x10^6/uL (4.38-5.82)
[2021-02-19 10:11] LABS: ALBUMIN 1.4 g/dL (3.4-5.0); ANION GAP 7 mmol/L (5-15); CALCIUM 8.7 mg/dL (8.5-10.1); CHLORIDE 109 mmol/L (98-107)
[2021-02-19 10:14] LABS: ALKALINE PHOSPHATASE 94 U/L (45-117); BILIRUBIN,TOTAL 0.4 mg/dL (0.2-1.0); CREATININE 0.53 mg/dL (0.7-1.3); TOTAL PROTEIN 6.4 g/dL (6.4-8.2)
[2021-02-19 10:16] LABS: ALANINE AMINOTRANSFERASE < 6 U/L (12-78)
[2021-02-19 10:40] LABS: EOS#(MANUAL) 0.65 x10^3/uL (0.0-0.4); EOS% (MANUAL) 3 % (1-7); LYMPH#(MANUAL) 2.38 x10^3/uL (1-3.4); LYMPHS% (MANUAL) 11 % (22-44); MONOS#(MANUAL) 2.16 x10^3/uL (0.3-2.7); MONOS% (MANUAL) 10 % (2-9); SEG#(MANUAL) 16.42 x10^3/uL (1.8-6.8); SEGS% (MANUAL) 76 % (42-75)
[2021-02-19 10:41] LABS: ANISOCYTOSIS 1+; HYPOCHROMIA 1+
[2021-02-19 10:42] LABS: <PLATELET ESTIMATE> INCREASED; SMALL PLATELETS 1+
[2021-02-19] MEDS: VANCOMYCIN 1,000 MG in SODIUM CHLORIDE 0.9% 100 ML IV SCH (12:43)
[2021-02-19 13:22] VITALS: BP 137/72
[2021-02-19] MEDS ORDERED: ACETAMINOPHEN 325 MG TABLET PO PRN (15:30)
[2021-02-19] MEDS ORDERED: ACETAMINOPHEN 325 MG TABLET ONE (15:31)
[2021-02-19] MEDS: CEFTRIAXONE 2 GM in DEXTROSE 5% 50 ML IVPB SCH (17:22)
[2021-02-19] MEDS: POTASSIUM CHLORIDE 20 MEQ TAB.ER.PRT PO SCH (17:22)
[2021-02-19 19:20] VITALS: BP 133/64
[2021-02-19 23:30] VITALS: BP 147/77
[2021-02-20] MEDS: morphine SULFATE 10 MG/ML, 1ML IVPush PRN ×2 (00:09→21:17)
[2021-02-20 00:10] LABS: MICROSCOPIC NOT IND
[2021-02-20 00:43] LABS: TROPONIN I < 0.015 ng/mL (0.000-0.045)
[2021-02-20 01:52] VITALS: BP 142/60
[2021-02-20 05:43] LABS: TROPONIN I < 0.015 ng/mL (0.000-0.045)
[2021-02-20] MEDS ORDERED: VANCOMYCIN 1,000 MG in SODIUM CHLORIDE 0.9% 100 ML IV SCH (06:00)
[2021-02-20 06:46] VITALS: BP 120/45
[2021-02-20 08:04] LABS: ALBUMIN 1.3 g/dL (3.4-5.0); ANION GAP 8 mmol/L (5-15); CALCIUM 8.4 mg/dL (8.5-10.1); CHLORIDE 108 mmol/L (98-107); CREATININE 0.58 mg/dL (0.7-1.3)
[2021-02-20 08:06] LABS: ALKALINE PHOSPHATASE 83 U/L (45-117); BILIRUBIN,TOTAL 0.2 mg/dL (0.2-1.0); TOTAL PROTEIN 5.8 g/dL (6.4-8.2)
[2021-02-20 08:19] LABS: ALANINE AMINOTRANSFERASE < 6 U/L (12-78)
[2021-02-20 08:34] LABS: MEAN CORPUSCULAR HEMOGLOBIN 26.1 pg (27.5-34.5); MEAN CORPUSCULAR HGB CONC 32.3 g/dL (33.2-36.2); PLATELET COUNT 702 x10^3/uL (130-400); RED BLOOD COUNT 3.07 x10^6/uL (4.38-5.82); RED CELL DISTRIBUTION WIDTH 18.5 % (9.4-14.8)
[2021-02-20] MEDS: POTASSIUM CHLORIDE 20 MEQ TAB.ER.PRT PO SCH ×3 (08:58→17:15)
[2021-02-20 09:23] LABS: BAND#(MANUAL) 0.52 x10^3/uL; BANDS%(MANUAL) 3 % (0-7); EOS#(MANUAL) 0.17 x10^3/uL (0.0-0.4); EOS% (MANUAL) 1 % (1-7); LYMPH#(MANUAL) 1.39 x10^3/uL (1-3.4); LYMPHS% (MANUAL) 8 % (22-44); MONOS#(MANUAL) 0.87 x10^3/uL (0.3-2.7); MONOS% (MANUAL) 5 % (2-9); SEG#(MANUAL) 14.44 x10^3/uL (1.8-6.8); SEGS% (MANUAL) 83 % (42-75)
[2021-02-20 09:25] LABS: ANISOCYTOSIS 1+; HYPOCHROMIA 1+
[2021-02-20 09:26] LABS: <PLATELET ESTIMATE> INCREASED; SMALL PLATELETS 1+
[2021-02-20 15:13] VITALS: BP 153/62
[2021-02-20 18:25] VITALS: BP 115/58
[2021-02-21 01:01] VITALS: BP 120/80
[2021-02-21] MEDS ORDERED: MELATONIN 5 MG TABLET PO ONE (02:30)
[2021-02-21] MEDS: morphine SULFATE 10 MG/ML, 1ML IVPush PRN ×2 (03:34→19:34)
[2021-02-21 04:05] VITALS: BP 152/63
[2021-02-21 07:18] VITALS: BP 150/65
[2021-02-21] MEDS: POTASSIUM CHLORIDE 20 MEQ TAB.ER.PRT PO SCH ×3 (08:00→18:14)
[2021-02-21] MEDS ORDERED: POTASSIUM CHLORIDE 20 MEQ TAB.ER.PRT PO ONE (10:30)
[2021-02-21 12:10] VITALS: BP 142/62
[2021-02-21 13:10] VITALS: BP 142/62
[2021-02-21 20:32] VITALS: BP 139/70
[2021-02-22 00:35] VITALS: BP 135/65
[2021-02-22 07:02] VITALS: BP 141/60
[2021-02-22] MEDS: POTASSIUM CHLORIDE 20 MEQ TAB.ER.PRT PO SCH ×2 (07:52→11:40)
[2021-02-22] MEDS ORDERED: OXYC5TAB98 PO (11:07)
[2021-02-22] MEDS ORDERED: BISA10SU4 PR (11:07)
[2021-02-22] MEDS ORDERED: ACET325T26 PO (11:07)
[2021-02-22] MEDS ORDERED: POTA20TA6 PO (11:07)
[2021-02-22 13:48] VITALS: BP 142/66
[2021-02-25 13:10] LABS: ANA SCREEN NEGATIVE (Negative)
== END 2021-02-22 17:20 | DRG 356 ==
LOC: ED 19:00 → EDIP 20:13 → 4EST 21:07
PROVIDERS: ADMIT Family Medicine; ATTEND Internal Medicine
PROC: 30233N1 Transfusion of Nonautologous Red Blood Cells into Peripheral Vein, Percutaneous Approach (ICD-10-PCS; 2021-02-16)
PROC: 0DB98ZX Excision of Duodenum, Via Natural or Artificial Opening Endoscopic, Diagnostic (ICD-10-PCS; 2021-02-17)
PROC: 0WBF3ZX Excision of Abdominal Wall, Percutaneous Approach, Diagnostic (ICD-10-PCS; principal; 2021-02-18 10:15)
PROC: 0DJD8ZZ Inspection of Lower Intestinal Tract, Via Natural or Artificial Opening Endoscopic (ICD-10-PCS; 2021-02-19)
DX: C76.2 Malignant neoplasm of abdomen (principal); E43 Unspecified severe protein-calorie malnutrition; C16.9 Malignant neoplasm of stomach, unspecified; D62 Acute posthemorrhagic anemia; R64 Cachexia; R65.10 Systemic inflammatory response syndrome (SIRS) of non-infectious origin without acute organ dysfunction; D50.9 Iron deficiency anemia, unspecified; D69.6 Thrombocytopenia, unspecified; E78.5 Hyperlipidemia, unspecified; E87.6 Hypokalemia; F10.10 Alcohol abuse, uncomplicated; F17.210 Nicotine dependence, cigarettes, uncomplicated; F32.9 Major depressive disorder, single episode, unspecified; F41.9 Anxiety disorder, unspecified; I10 Essential (primary) hypertension; I25.10 Atherosclerotic heart disease of native coronary artery without angina pectoris; I25.2 Old myocardial infarction; I35.1 Nonrheumatic aortic (valve) insufficiency; I70.0 Atherosclerosis of aorta; K22.2 Esophageal obstruction; K44.9 Diaphragmatic hernia without obstruction or gangrene; Z53.9 Procedure and treatment not carried out, unspecified reason; Z63.8 Other specified problems related to primary support group; Z82.49 Family history of ischemic heart disease and other diseases of the circulatory system; Z95.1 Presence of aortocoronary bypass graft; Z95.5 Presence of coronary angioplasty implant and graft; Y90.9 Presence of alcohol in blood, level not specified; Z68.20 Body mass index [BMI] 20.0-20.9, adult; Z20.822 Contact with and (suspected) exposure to COVID-19
CPT/HCPCS: 36415; 36430; 49180; 71045; 71260; 74177; 77012; 80048; 80053; 80061; 80202; 80320; 81001; 81003; 82728; 83036; 83540; 83550; 83605; 83735; 83880; 84100; 84145; 84443; 84484; 85014; 85018; 85025; 85610; 85651; 85730; 86038; 86140; 86430; 86611; 86638; 86850; 86900; 86923; 87040; 87449; 87635; 88305; 88341; 88342; 93005; 93306; 93312; 93325; 93970; 96374; 99156; 99157; G0378; J0696; J2250; J2704; J3010; J3370; J3480; Q9967; C9113; G0480; J2270; J2310; J7030; J7050; J7120; P9016

== ENCOUNTER 2021-02-23 09:44 | Emergency (ER) | payer OTHER ==
[~2021-02-23] VITALS: Ht 165.1 cm; Wt 61.0 kg
[~2021-02-23 09:44] MED LIST changes: +ACET325T26 PO; +BISA10SU4 PR; +OXYC5TAB98 PO; +POTA20TA6 PO
--- NOTE | 2021-02-23 09:55 | NUR ---
BIB [facility] FROM [facility]. ABOUT 30 MIN AGO, PT C/O CP AND DIZZINESS. CP RESOLVED PRIOR TO [facility] ARRIVAL. PT DC FROM [facility] YESTERDAY AFTER NSTEMI. PT CONNECTED TO MONITORING. EKG COMPLETE.
--- NOTE | 2021-02-23 10:11 | NUR ---
PIV PLACED, LABS DRAWN AND COLLECTED BY IT HELP DESK ASSOCIATE. PT CONNECTED TO ALL MONITORING. CALL LIGHT IN REACH. FALL PRECAUTIONS IN PLACE. WARM BLANKETS PROVIDED.
[2021-02-23 10:17] LABS: MEAN CORPUSCULAR HEMOGLOBIN 25.7 pg (27.5-34.5); MEAN CORPUSCULAR HGB CONC 32.1 g/dL (33.2-36.2); MEAN PLATELET VOLUME 6.5 fL (7.4-10.4); PLATELET COUNT 681 x10^3/uL (130-400); RED BLOOD COUNT 3.31 x10^6/uL (4.38-5.82); RED CELL DISTRIBUTION WIDTH 18.3 % (9.4-14.8)
[2021-02-23 10:28] LABS: ALBUMIN 1.6 g/dL (3.4-5.0); ANION GAP 10 mmol/L (5-15); CALCIUM 8.8 mg/dL (8.5-10.1); CHLORIDE 100 mmol/L (98-107); CREATININE 0.63 mg/dL (0.7-1.3)
[2021-02-23 10:32] LABS: TROPONIN I < 0.015 ng/mL (0.000-0.045)
[2021-02-23 10:39] LABS: LYMPH#(MANUAL) 1.57 x10^3/uL (1-3.4); LYMPHS% (MANUAL) 8 % (22-44); MONOS#(MANUAL) 1.96 x10^3/uL (0.3-2.7); MONOS% (MANUAL) 10 % (2-9); SEG#(MANUAL) 16.07 x10^3/uL (1.8-6.8); SEGS% (MANUAL) 82 % (42-75)
[2021-02-23 10:40] LABS: <PLATELET ESTIMATE> INCREASED; ANISOCYTOSIS 1+; HYPOCHROMIA 1+
--- NOTE | 2021-02-23 10:42 | NUR ---
PT GOING TO CT.
[2021-02-23 10:43] LABS: SMALL PLATELETS 1+
[2021-02-23] MEDS ORDERED: OMNIPAQUE 350 MG/ML, 75ML BOTTLE ONE (10:45)
--- NOTE | 2021-02-23 10:55 | NUR ---
REPORT GIVEN TO JEANNIE WEN.
--- NOTE | 2021-02-23 11:22 | NUR ---
PROVIDED WARM BLANKET. PT RESTING IN NAD.
--- NOTE | 2021-02-23 12:03 | NUR ---
PT RESTING ON [employer] IN NAD. VSS.
[2021-02-23 12:41] LABS: TROPONIN I < 0.015 ng/mL (0.000-0.045)
[2021-02-23 13:07] VITALS: BP 124/56
--- NOTE | 2021-02-23 13:19 | NUR ---
REPORT TO JANESSA WEN AT [facility].
--- NOTE | 2021-02-23 13:20 | NUR ---
[email or web address] TRANSPORT TO PICK PT UP AT 1400.
== END 2021-02-23 13:57 | disposition home or self-care (01) ==
LOC: ED 09:56
DX: J90 Pleural effusion, not elsewhere classified (principal); R07.89 Other chest pain; I10 Essential (primary) hypertension; R94.31 Abnormal electrocardiogram [ECG] [EKG]; E78.5 Hyperlipidemia, unspecified; I25.2 Old myocardial infarction; F17.200 Nicotine dependence, unspecified, uncomplicated; Z85.028 Personal history of other malignant neoplasm of stomach
CPT/HCPCS: 36415; 71275; 80048; 82040; 83880; 84484; 85025; 93005; 99284; Q9967

== ENCOUNTER 2021-02-25 13:59 | Emergency (ER) | payer OTHER ==
[~2021-02-25] VITALS: Ht 165.1 cm; Wt 52.3 kg
--- NOTE | 2021-02-25 14:05 | NUR ---
BIB [facility] FROM [facility] FOR INTERMITTENT CHEST PAIN ONSET AT 1000 THIS AM AND OCCURRING AGAIN THIS AFTERNOON. SEEN IN ED ABOUT 4 DAYS AGO FOR SAME COMPLAINT. GIVEN NITRO X1 AND XANAX TIBCO DEVELOPER WITH NO RELIEF. PER EMS, PAIN REPRODUCIBLE WITH DEEP INSPIRATION AND RELIEVED WHEN PT LIED FLAT ON BED AT HALF-WAY. EKG NSR 70s PER EMS. HX COPD, NSTEMI 22 YEARS AGO. Addendum: 02/25/21 at 1454 by HBENSON BIB [facility] FROM [facility] FOR INTERMITTENT CHEST PAIN ONSET AT 1000 THIS AM AND OCCURRING AGAIN THIS AFTERNOON. SEEN IN ED ABOUT 4 DAYS AGO FOR SAME COMPLAINT. GIVEN NITRO X1 AND XANAX TIBCO DEVELOPER WITH NO RELIEF. PER EMS, PAIN REPRODUCIBLE WITH DEEP INSPIRATION AND RELIEVED WHEN PT LIED FLAT ON BED AT HALF-WAY. EKG NSR 70s PER EMS. HX COPD, CABG X4, MO.
--- NOTE | 2021-02-25 14:10 | NUR ---
SPO2 WAS 89-91% ON RA; O2 APPLIED AT 1.5L NC.
--- NOTE | 2021-02-25 15:06 | NUR ---
ER PA WAS IN TO SEE PT. PT DENYING ANY CHEST PAIN AT THIS TIME. REPORTS FATIGUE.
[2021-02-25 15:25] LABS: MEAN CORPUSCULAR HEMOGLOBIN 25.6 pg (27.5-34.5); MEAN CORPUSCULAR HGB CONC 31.7 g/dL (33.2-36.2); MEAN PLATELET VOLUME 6.7 fL (7.4-10.4); PLATELET COUNT 650 x10^3/uL (130-400); RED BLOOD COUNT 3.05 x10^6/uL (4.38-5.82); RED CELL DISTRIBUTION WIDTH 19.3 % (9.4-14.8)
[2021-02-25 15:38] LABS: ALBUMIN 1.5 g/dL (3.4-5.0); ANION GAP 4 mmol/L (5-15); CALCIUM 8.6 mg/dL (8.5-10.1); CHLORIDE 104 mmol/L (98-107); CREATININE 0.65 mg/dL (0.7-1.3)
[2021-02-25 15:41] LABS: ALANINE AMINOTRANSFERASE < 6 U/L (12-78)
[2021-02-25 15:42] LABS: ALKALINE PHOSPHATASE 92 U/L (45-117); BILIRUBIN,TOTAL 0.3 mg/dL (0.2-1.0); TOTAL PROTEIN 6.9 g/dL (6.4-8.2); TROPONIN I < 0.015 ng/mL (0.000-0.045)
[2021-02-25 16:13] LABS: BANDS%(MANUAL) 2 % (0-7); LYMPH#(MANUAL) 1.62 x10^3/uL (1-3.4); LYMPHS% (MANUAL) 8 % (22-44); MONOS#(MANUAL) 2.02 x10^3/uL (0.3-2.7); MONOS% (MANUAL) 10 % (2-9); SEG#(MANUAL) 16.16 x10^3/uL (1.8-6.8); SEGS% (MANUAL) 80 % (42-75)
[2021-02-25 16:15] LABS: <PLATELET ESTIMATE> INCREASED; ANISOCYTOSIS 1+; HYPOCHROMIA 1+; POLYCHROMASIA 1+; ROULEAUX 1+
[2021-02-25 16:16] LABS: SMALL PLATELETS 1+
[2021-02-25 16:50] VITALS: BP 137/81
--- NOTE | 2021-02-25 18:33 | NUR ---
EPS REPORT CREATED TO LINK PATIENT WITH ADDITIONAL SUPPORT (NEEDS BUSINESS OPERATIONS MANAGER FOR HOME HEALTH, PCP, ETC)
== END 2021-02-25 16:54 | disposition home or self-care (01) ==
LOC: ED 14:19
DX: R07.89 Other chest pain (principal); D63.8 Anemia in other chronic diseases classified elsewhere; R94.31 Abnormal electrocardiogram [ECG] [EKG]; Z85.028 Personal history of other malignant neoplasm of stomach; I10 Essential (primary) hypertension; I25.2 Old myocardial infarction; I25.10 Atherosclerotic heart disease of native coronary artery without angina pectoris; I11.9 Hypertensive heart disease without heart failure; E78.5 Hyperlipidemia, unspecified
CPT/HCPCS: 36415; 71045; 80053; 84484; 85025; 93005; 99283